=== PATIENT | male | born 1980 | race Caucasian/White ===

== ENCOUNTER 2019-08-04 16:24 | Inpatient (IN) | payer BC ==
[~2019-08-04] VITALS: Ht 185.4 cm; Wt 90.7 kg
--- NOTE | 2019-08-04 16:36 | Emergency Room Report ---
History of Present Illness General Chief Complaint: Generalized Weakness Source: Patient, EMS Present Illness HPI Patient is a 38-year-old male who presents after increased generalized weakness. Patient reports having a recent illness which positive for had some E. coli. Reports having increased generalized weakness. He denies any fever. Reports having some headache with associated right-sided eye pressure. He reports having some increased neck discomfort.He had recent been treated with azithromycin for E. coli diarrheal infection by his doctor. Patient reportedly had multiple syncopal episodes at his ENTs office. Patient apparently passed out 3 times.He denies any nasal congestion or cough. He denies any shortness of breath.Patient reports having some watery diarrheal episode this morning. He reports primarily pain to the right side of his head as well as some slight neck discomfort. He had previous steroid injections in his neck in the past. He does not take any medications regularly but did take ibuprofen this morning. Patient does report having one episode of nonbloody stool this morning. His primary care physician he had previously been healthy but not had not had any prior significant cardiac work-up. Allergies: Coded Allergies: No Known Allergies (Unverified , 08/04/19) Patient History Past Medical History: see triage record Reviewed Nursing Documentation: PMH: Agreed; PSxH: Agreed Review of Systems Musculoskeletal: Reports: muscle stiffness - neck Neurological: Reports: headache, syncope - near syncope All Other Systems: negative except mentioned in HPI Physical Exam Vital Signs Date Time Temp Pulse Resp B/P (MAP) Pulse Ox O2 Delivery O2 Flow Rate FiO2 08/04/19 16:19 98.1 82 16 141/83 (102) 97 Room Air Sp02 EP Interpretation: reviewed, normal General Appearance: normal inspection, well appearing, no apparent distress, alert, GCS 15, non-toxic Head: atraumatic ENT: normal ENT inspection, hearing grossly normal, normal voice Neck: normal inspection, full range of motion, supple, no bony tend Respiratory: normal inspection, lungs clear, normal breath sounds, no respiratory distress, no retraction, no wheezing Cardiovascular #1: regular rate, rhythm, no edema Gastrointestinal: normal inspection, normal bowel sounds, non tender, soft, no guarding, no hernia Genitourinary: no CVA tenderness Musculoskeletal: normal inspection, back normal, normal range of motion Neurologic: normal inspection, alert, oriented x3, responsive, 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 Differential diagnosis include was not limited to dehydration, pulmonary embolism, cardiac arrhythmia, E. coli infection, among others. Because of complexity of patient's case laboratory tests and imaging studies were ordered. EKG interpreted by me showed normal sinus rhythm with a rate of [address] or T wave changes. Patient was noted to have increased generalized weakness and headache. CT imaging of the head read by radiology showed no evidence of acute intracranial hemorrhage or sinus enlargement. Patient was started on IV fluids. He was given Toradol for headache. He was also given some Ativan due to mild anxiety. Patient reports that he has had some recent decrease in amount of caffeine he is taking and this may explain his headaches however he likely require further work-up due to recent near syncopal episodes. He does report having some prior steroid injections in his neck after some neck discomfort in the past but does not recall any recent procedures. He had multiple episodes of recent travel but denies any recent leg pain or swelling consistent with DVT or pulmonary embolism patient was discussed with Dr. Silvia Lux for inpatient management due to covering physician for who I discussed patient's history and laboratory findings. Labs Test 08/04/19 16:40 08/04/19 17:05 White Blood Count 7.2 K/UL (4.8-10.8) Red Blood Count 5.76 M/UL (4.70-6.10) Hemoglobin 17.1 G/DL (14.2-18.0) Hematocrit 50.2 % (42.0-52.0) Mean Corpuscular Volume 87 FL (80-99) Mean Corpuscular Hemoglobin 29.7 PG (27.0-31.0) Mean Corpuscular Hemoglobin Concent 34.1 G/DL (32.0-36.0) Red Cell Distribution Width 10.1 % (11.6-14.8) Platelet Count 239 K/UL (150-450) Mean Platelet Volume 5.6 FL (6.5-10.1) Neutrophils (%) (Auto) 54.6 % (45.0-75.0) Lymphocytes (%) (Auto) 30.1 % (20.0-45.0) Monocytes (%) (Auto) 9.3 % (1.0-10.0) Eosinophils (%) (Auto) 5.1 % (0.0-3.0) Basophils (%) (Auto) 0.9 % (0.0-2.0) Prothrombin Time 11.0 SEC (9.30-11.50) Prothromb Time International Ratio 1.0 (0.9-1.1) Activated Partial Thromboplast Time 29 SEC (23-33) Sodium Level 140 MMOL/L (136-145) Potassium Level 3.9 MMOL/L (3.5-5.1) Chloride Level 105 MMOL/L (98-107) Carbon Dioxide Level 27 MMOL/L (21-32) Anion Gap 8 mmol/L (5-15) Blood Urea Nitrogen 10 mg/dL (7-18) Creatinine 1.1 MG/DL (0.55-1.30) Estimat Glomerular Filtration Rate > 60 mL/min (>60) Glucose Level 116 MG/DL (74-106) Calcium Level 9.3 MG/DL (8.5-10.1) Magnesium Level 1.1 MG/DL (1.8-2.4) Total Bilirubin 0.4 MG/DL (0.2-1.0) Aspartate Amino Transf (AST/SGOT) 16 U/L (15-37) Alanine Aminotransferase (ALT/SGPT) 30 U/L (12-78) Alkaline Phosphatase 56 U/L (46-116) Troponin I 0.000 ng/mL (0.000-0.056) Total Protein 7.8 G/DL (6.4-8.2) Albumin 4.2 G/DL (3.4-5.0) Globulin 3.6 g/dL Albumin/Globulin Ratio 1.2 (1.0-2.7) Thyroid Stimulating Hormone (TSH) 1.027 uiU/mL (0.358-3.740) Urine Color Pale yellow Urine Appearance Clear Urine pH 9 (4.5-8.0) Urine Specific [place] 1.010 (1.005-1.035) Urine Protein Negative (NEGATIVE) Urine Glucose (UA) Negative (NEGATIVE) Urine Ketones Negative (NEGATIVE) Urine Blood Negative (NEGATIVE) Urine Nitrite Negative (NEGATIVE) Urine Bilirubin Negative (NEGATIVE) Urine Urobilinogen Normal MG/DL (0.0-1.0) Urine Leukocyte Esterase Negative (NEGATIVE) Urine RBC 0 /HPF (0 - 0) Urine WBC 0-2 /HPF (0 - 0) Urine Squamous Epithelial Cells None /LPF (NONE/OCC) Urine Bacteria Occasional /HPF (NONE) EKG Diagnostic Results Rate: normal Rhythm: NSR ST Segments: no acute changes Last Vital Signs Date Time Temp Pulse Resp B/P (MAP) Pulse Ox O2 Delivery O2 Flow Rate FiO2 08/04/19 16:19 98.1 82 16 141/83 (102) 97 Room Air Status: improved Disposition: ADMITTED INPATIENT Condition: Stable Scripts Simethicone* (SIMETHICONE*) 80 Mg Tab.chew 80 MG ORAL QID PRN for 30 Days, #30 TAB Prov: Venkata Keller D.O. 08/05/19 Allan Johnston MD Aug 04, 2019 16:36
[2019-08-04 16:39] VITALS: BP 152/94
--- NOTE | 2019-08-04 16:50 | NUR ---
ED Nurse Note: Pt BIBA d/t weakness and diarrhea x2wks. ERMD at bedside. 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 IV on left AC noted, inserted by EMS. Blood sample collected and sent to lab. Denies pain/discomfort at this time. Will continue to monitor.
[2019-08-04] MEDS ORDERED: LR 1000ml 1,000 ML IV SCH (17:00)
[2019-08-04] MEDS ORDERED: Ketorolac 30mg Inj IV ONE (17:00)
[2019-08-04] MEDS ORDERED: NKM (17:07)
--- NOTE | 2019-08-04 17:09 | NUR ---
ED Nurse Note: Pt taken down for CT scan, in stable condition.
[2019-08-04 17:19] LABS: APPEARANCE,URINE CLEAR; BILIRUBIN, URINE NEGATIVE (NEGATIVE); COLOR,URINE PALE YELLOW; GLUCOSE, URINE (UA) NEGATIVE (NEGATIVE); KETONES,URINE NEGATIVE (NEGATIVE); LEUKOCYTE ESTERASE ,URINE NEGATIVE (NEGATIVE); NITRITE,URINE NEGATIVE (NEGATIVE); PH,URINE 9 (4.5-8.0); PROTEIN,URINE NEGATIVE (NEGATIVE); UROBILINOGEN,URINE NORMAL MG/DL (0.0-1.0)
[2019-08-04 17:20] LABS: BASOPHILS % (AUTO) 0.9 % (0.0-2.0); EOSINOPHILS % (AUTO) 5.1 % (0.0-3.0); HEMATOCRIT 50.2 % (42.0-52.0); HEMOGLOBIN 17.1 G/DL (14.2-18.0); LYMPHOCYTES % (AUTO) 30.1 % (20.0-45.0); MEAN CORPUSCULAR VOLUME 87 FL (80-99); MONOCYTES % (AUTO) 9.3 % (1.0-10.0); NEUTROPHILS % (AUTO) 54.6 % (45.0-75.0); PLATELET COUNT 239 K/UL (150-450); RED BLOOD COUNT 5.76 M/UL (4.70-6.10); RED CELL DISTRIBUTION WIDTH 10.1 % (11.6-14.8); WHITE BLOOD COUNT 7.2 K/UL (4.8-10.8)
[2019-08-04 17:27] LABS: ANION GAP 8 mmol/L (5-15); BLOOD UREA NITROGEN 10 mg/dL (7-18); CALCIUM 9.3 MG/DL (8.5-10.1); CARBON DIOXIDE 27 MMOL/L (21-32); CHLORIDE 105 MMOL/L (98-107); CREATININE 1.1 MG/DL (0.55-1.30); POTASSIUM 3.9 MMOL/L (3.5-5.1); SODIUM 140 MMOL/L (136-145)
--- NOTE | 2019-08-04 17:31 | NUR ---
ED Nurse Note: Pt back from CT in stable condition. IV fluids ongoing.
[2019-08-04 17:39] LABS: ALANINE AMINOTRANSFERASE 30 U/L (12-78); ALBUMIN 4.2 G/DL (3.4-5.0); ALBUMIN/GLOBULIN RATIO 1.2 (1.0-2.7); ALKALINE PHOSPHATASE 56 U/L (46-116); ASPARTATE AMINO TRANSFERASE 16 U/L (15-37); BILIRUBIN,TOTAL 0.4 MG/DL (0.2-1.0)
[2019-08-04] MEDS ORDERED: LORazepam 0.5mg tab ORAL ONE (17:45)
--- NOTE | 2019-08-04 17:47 | Diagnostic Imaging Report ---
EXAM: CT Head Without Intravenous Contrast CLINICAL HISTORY: PAIN TECHNIQUE: Axial computed tomography images of the head brain without intravenous contrast. CTDI is 60.0 mGy and DLP is 1280.1 mGy-cm. One or more of the following dose reduction techniques were used: automated exposure control, adjustment of the mA and or kV according to patient size, use of iterative reconstruction technique. COMPARISON: None FINDINGS: Brain: No acute infarct or hemorrhage. No extra-axial fluid collection. No mass effect or midline shift. Ventricles and sulci: Normal. No ventriculomegaly or intraventricular hemorrhage. Skull: Normal. No bony lesion or fracture. Subcutaneous tissues: Normal. Sinuses: Normal. No air-fluid levels or mucosal thickening. Mastoid air cells: Normal. Orbits: Grossly unremarkable. IMPRESSION: No acute intracranial abnormality.
[2019-08-04] MEDS ORDERED: LORazepam Inj 2mg/ml 1ml IV PRN (18:30)
[2019-08-04] MEDS ORDERED: Zolpidem 5mg tab ORAL PRN (18:30)
[2019-08-04] MEDS ORDERED: HYDROcodone/Acetamin 10/325 tab ORAL PRN (18:30)
[2019-08-04] MEDS ORDERED: HYDROcodone/Acetamin 5/325 tab ORAL PRN (18:30)
[2019-08-04 18:50] VITALS: BP 140/78
[2019-08-04 18:51] VITALS: BP_SYST 138; BP_SYST 139; BP_DIAS 72; BP_DIAS 76
--- NOTE | 2019-08-04 18:55 | NUR ---
ED Nurse Note: Orthostatics completed; patient tolerated procedure well.
--- NOTE | 2019-08-04 19:00 | NUR ---
HAND-OFF: Report given to NAHOMI Kirby.
--- NOTE | 2019-08-04 19:02 | NUR ---
ED Nurse Note: Report received from NAHOMI Hwang. pt in bed awake, VSS
--- NOTE | 2019-08-04 19:35 | NUR ---
ED Nurse Note: report given to NAHOMI Carroll
--- NOTE | 2019-08-04 19:40 | NUR ---
ED Nurse Note: pt was brought up to room 207 accompanied by pharmacy technology instructor and RN via gurmo with monitor box in stable condition. pt is alert x4. IV site to left AC is intact. belonging list signed off.
[2019-08-04 20:00] VITALS: BP 137/75
[2019-08-05] VITALS: BP 132/82
[2019-08-05] MEDS ORDERED: Flu Vaccine Pts Less than 65 Years old IM ONE (01:45)
[2019-08-05 04:00] VITALS: BP 115/73
--- NOTE | 2019-08-05 07:58 | NUR ---
NURSE notes: pt awake and alert x4. pt has is not complaining of pain. Pt is on child monitor no signs of cardiac or respiratory distress. Call light within reach. Bed is locked and in lowest position. pt awaiting a 2D echo. will continue to monitor pt and labs.
[2019-08-05 08:00] VITALS: BP 143/85
[2019-08-05] MEDS ORDERED: Simethicone 80mg tab ORAL PRN (10:45)
[2019-08-05 12:00] VITALS: BP 138/74
--- NOTE | 2019-08-05 13:23 | History and Physical ---
History of Present Illness General Date patient seen: Aug 05, 2019 Reason for Hospitalization: Generalized Weakness Present Illness HPI This is a 38 year old male with a PMHx of cervical radiculopathy s/p IV steroid shot one year ago, who presents to the ER on 08/04/19 for near syncope. The patient had been feeling generalized weakness for the past 3 weeks with some intermittent episodes of lightheadedness after eating. No abdominal pain,nausea , vomiting. He has had some change in his stools. They are closer to bristol type 5 and 6, and seem to possible float more. His stool was tested 3 weeks ago and positive for E. Coli and he was treated with 3 days of azithromycin. He continued to experience the same symptoms intermittently so was treated again for 3 days while in [place]. He leads a very active lifestyle and travels a lot. He drinks about 2-3 cups of caffeine per day and alcohol occasionally. Sometimes he skips meals and does not drink much water. His sleep is interrupted from jet lag and a busy schedule occasionally. He has recently stopped smoking cigarettes and stopped drinking caffeine. 2 nights ago, after a busy schedule and concert, his neck felt stiff and had some radiculopathy into his left arm. no trauma. These are chronic symptoms he experiences intermittently. He took a flexeril that night. The next day he woke up with a bilateral retroorpital, pressure, constant 3/10, nonradiating. no fevers, or chills. He took an ibuprofen, magnesium pills and some probiotics. He has a past history of sinus infections and thought he might have one so went to see his ENT physician. While in the office he suddenly felt lightheaded and felt like he was going to pass out. He denies ever losing consciousness. He denies any chest pain, palpitations. He felt anxious during this time and a little short of breath. There was no seizure like activity observed. No incontinence or bowel/bladder incontinence. EMS was called and [place] [facility] [place]: In the ER tmax 98, pulse 55-92, respirations 16-18, BP 115-155/73- 94. He was given 2L normal saline and 75 cc/hr overnight. His orthostatics were negative. EKG showed NSR with rate of 68, normal intervals, no ST-T wave elevations, depressions or inversions. On telemetry he was sinus rhythm, but became sinus bradycardia to high 40s while sleeping. CT head performed was negative. CBC normal, CMP normal. Magnesium low at 1.1. He was admitted to telemetry for further workup. PMhx As above PsurgHx Sinus surgery 2010 Family Hx Dad- CAD Mother- near syncope Social Hx Tobacco- former social smoker Etoh: Socially Drugs: marijuana occasionally Allergies: Coded Allergies: No Known Allergies (Unverified , 08/04/19) Medication History Scheduled No Known Medications* (NKM - No Known Medications*), 0 ., (Reported) Patient History Healthcare decision maker N Resuscitation status Full Code Advanced Directive on File Review of Systems Constitutional: Reports: malaise; Denies: see HPI, chills, sweats, fever, weakness, other Eye: Denies: see HPI, eye pain, blurred vision, tearing, double vision, nose pain, nose congestion, acuity changes, discharge, other ENT: Denies: see HPI, ear pain, ear discharge, nose pain, nose congestion, throat pain, throat swelling, mouth pain, hearing loss, nasal discharge, other Respiratory: Denies: see HPI, cough, orthopnea, shortness of breath, stridor, wheezing, PEÑA, sputum, other Cardiovascular: Denies: see HPI, chest pain, edema, palpitations, syncope, PND , other Gastrointestinal: Denies: see HPI, abdominal pain, constipation, diarrhea, nausea, vomiting, melena, hematemesis, other Genitourinary: Denies: see HPI, discharge, dysuria, frequency, hematuria, pain , retention, incontinence, urgency, vag bleed/dc, other Musculoskeletal: Denies: see HPI, back pain, gout, joint pain, joint swelling, muscle pain, muscle stiffness, other Skin: Denies: see HPI, rash, change in color, change in hair/nails, dryness, lesions, other Psychiatric: Denies: see HPI, prior hx, anxiety, depressed feelings, emotional problems, SI, HI, hallucinations, other Neurological: Denies: see HPI, headache, numbness, paresthesia, seizure, tingling, tremors, focal weakness, syncope, dizziness, other Endocrine: Denies: see HPI, excessive sweating, flushing, intolerance to temperature, increased thirst, increased urine, unexplained weight loss, other Hematologic/Lymphatic: Denies: see HPI, anemia, blood clots, easy bleeding, easy bruising, swollen glands, diathesis, other Physical Exam General Appearance: WD/WN, no apparent distress, alert Lines, tubes and drains: peripheral HEENT: normocephalic, atraumatic Neck: non-tender, normal alignment, supple Respiratory/Chest: chest wall non-tender, lungs clear, normal breath sounds Cardiovascular/Chest: normal peripheral pulses, normal rate, regular rhythm, no JVD Abdomen: normal bowel sounds, non tender, soft, no mass Extremities: normal range of motion, non-tender, normal inspection Skin Exam: normal pigmentation, warm/dry 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 normal, no motor/sensory deficits, alert, oriented x 3, responsive, normal mood/affect Last 24 Hour Vital Signs Date Time Temp Pulse Resp B/P (MAP) Pulse Ox O2 Delivery O2 Flow Rate FiO2 08/05/19 08:00 97.8 66 20 143/85 (104) 97 08/05/19 08:00 58 08/05/19 04:00 55 08/05/19 04:00 97.0 62 18 115/73 (87) 99 08/05/19 00:00 97.7 78 18 132/82 (99) 98 08/05/19 00:00 65 08/04/19 21:42 Room Air 08/04/19 20:00 98.2 65 18 137/75 (95) 99 08/04/19 20:00 57 08/04/19 19:40 98.2 92 18 141/88 99 Room Air 08/04/19 18:51 98.1 78 16 138/72 98 Room Air 08/04/19 18:51 98.1 72 16 139/76 98 Room Air 08/04/19 18:50 98.1 66 16 140/78 98 Room Air 08/04/19 16:39 98.1 66 16 152/94 98 Room Air 08/04/19 16:39 82 16 Room Air 08/04/19 16:19 98.1 82 16 141/83 (102) 97 Room Air Intake and Output 08/04/19 08/05/19 19:00 07:00 Intake Total 1300 ml Output Total 700 ml Balance 600 ml Intake IV Total 1100 ml Other 200 ml Output Urine Total 700 ml # Voids 3 Laboratory Tests Test 08/04/19 16:40 08/04/19 17:05 White Blood Count 7.2 K/UL (4.8-10.8) Red Blood Count 5.76 M/UL (4.70-6.10) Hemoglobin 17.1 G/DL (14.2-18.0) Hematocrit 50.2 % (42.0-52.0) Mean Corpuscular Volume 87 FL (80-99) Mean Corpuscular Hemoglobin 29.7 PG (27.0-31.0) Mean Corpuscular Hemoglobin Concent 34.1 G/DL (32.0-36.0) Red Cell Distribution Width 10.1 % (11.6-14.8) L Platelet Count 239 K/UL (150-450) Mean Platelet Volume 5.6 FL (6.5-10.1) L Neutrophils (%) (Auto) 54.6 % (45.0-75.0) Lymphocytes (%) (Auto) 30.1 % (20.0-45.0) Monocytes (%) (Auto) 9.3 % (1.0-10.0) Eosinophils (%) (Auto) 5.1 % (0.0-3.0) H Basophils (%) (Auto) 0.9 % (0.0-2.0) Prothrombin Time 11.0 SEC (9.30-11.50) Prothromb Time International Ratio 1.0 (0.9-1.1) Activated Partial Thromboplast Time 29 SEC (23-33) Sodium Level 140 MMOL/L (136-145) Potassium Level 3.9 MMOL/L (3.5-5.1) Chloride Level 105 MMOL/L (98-107) Carbon Dioxide Level 27 MMOL/L (21-32) Anion Gap 8 mmol/L (5-15) Blood Urea Nitrogen 10 mg/dL (7-18) Creatinine 1.1 MG/DL (0.55-1.30) Estimat Glomerular Filtration Rate > 60 mL/min (>60) Glucose Level 116 MG/DL (74-106) H Calcium Level 9.3 MG/DL (8.5-10.1) Magnesium Level 1.1 MG/DL (1.8-2.4) L Total Bilirubin 0.4 MG/DL (0.2-1.0) Aspartate Amino Transf (AST/SGOT) 16 U/L (15-37) Alanine Aminotransferase (ALT/SGPT) 30 U/L (12-78) Alkaline Phosphatase 56 U/L (46-116) Troponin I 0.000 ng/mL (0.000-0.056) Total Protein 7.8 G/DL (6.4-8.2) Albumin 4.2 G/DL (3.4-5.0) Globulin 3.6 g/dL Albumin/Globulin Ratio 1.2 (1.0-2.7) Thyroid Stimulating Hormone (TSH) 1.027 uiU/mL (0.358-3.740) Urine Color Pale yellow Urine Appearance Clear Urine pH 9 (4.5-8.0) Urine Specific [place] 1.010 (1.005-1.035) Urine Protein Negative (NEGATIVE) Urine Glucose (UA) Negative (NEGATIVE) Urine Ketones Negative (NEGATIVE) Urine Blood Negative (NEGATIVE) Urine Nitrite Negative (NEGATIVE) Urine Bilirubin Negative (NEGATIVE) Urine Urobilinogen Normal MG/DL (0.0-1.0) Urine Leukocyte Esterase Negative (NEGATIVE) Urine RBC 0 /HPF (0 - 0) Urine WBC 0-2 /HPF (0 - 0) Urine Squamous Epithelial Cells None /LPF (NONE/OCC) Urine Bacteria Occasional /HPF (NONE) Height (Feet): 6 Height (Inches): 1.00 Weight (Pounds): 200 Medications Current Medications Medications (Trade) Dose Ordered Sig/Amanda Route PRN Reason Start Time Stop Time Status Last Admin Dose Admin Acetaminophen (Tylenol) 650 mg Q4H PRN ORAL Mild Pain (Pain Scale 1-3) 08/04/19 18:30 09/03/19 18:29 08/05/19 11:13 Acetaminophen/ Hydrocodone Bitart ([place] 10/325) 1 tab Q6H PRN ORAL Pain Scale (7-10) 08/04/19 18:30 08/11/19 18:29 Acetaminophen/ Hydrocodone Bitart ([place] 5/325) 1 tab Q6H PRN ORAL Moderate Pain (Pain Scale 4-6) 08/04/19 18:30 08/11/19 18:29 Dextrose (Dextrose 50%) 25 ml Q30M PRN IV Hypoglycemia 08/04/19 18:30 09/03/19 18:29 Dextrose (Dextrose 50%) 50 ml Q30M PRN IV Hypoglycemia 08/04/19 18:30 09/03/19 18:29 Diphenhydramine HCl (Benadryl) 25 mg Q6H PRN ORAL Itching/Pruritis 08/04/19 18:30 09/03/19 18:29 Influenza Virus Vaccine Quadrival (Flu Vaccine Pts Less than 65 Years old) 1 ml ONCE ONCE IM 08/05/19 01:45 08/05/19 01:46 UNV Lorazepam (Ativan 2mg/ml 1ml) 0.5 mg Q4H PRN IV For Anxiety 08/04/19 18:30 08/11/19 18:29 08/05/19 05:01 Simethicone (Mylicon) 80 mg QID PRN ORAL flatulence 08/05/19 10:45 09/04/19 10:44 08/05/19 11:18 Sodium Chloride 1,000 ml @ 75 mls/hr [id number] IVLG 08/04/19 19:30 09/03/19 19:29 08/05/19 09:05 Zolpidem Tartrate (Ambien) 5 mg HSPRN PRN ORAL Insomnia 08/04/19 18:30 08/11/19 18:29 Objective Narrative TTE showed EF 65-70% No LVH No abnormal valves Assessment/Plan Problem List: (1) Generalized weakness ICD Codes: R53.1 - Weakness SNOMED: 72326462 (2) Malaise and fatigue ICD Codes: R53.81 - Other malaise; R53.83 - Other fatigue SNOMED: 767484209 (3) Dehydration ICD Codes: E86.0 - Dehydration SNOMED: 14343180 (4) Hypomagnesemia ICD Codes: E83.42 - Hypomagnesemia SNOMED: 720488788 (5) Near syncope ICD Codes: R55 - Syncope and collapse SNOMED: 053301485 Assessment/Plan: This is a 38 year old male with a PMHx of cervical radiculopathy s/p IV steroid shot one year ago, who presents for genearlized weakness, malaise, bloating x 3 weeks, and one episode of near syncope on 08/04/19. #Near syncope #Generalized weakness/malaise #bloating/change in stool boyency #dehydration Do Not suspect syncope or seizure. Patient had a near syncopal event. Suspect this is multifactorial. The patient has been under a lot of stress lately and has not been eating well, drinking, or sleeping well. MOst likely symptoms and near syncope can be explained by dehydration and exhaustion. He does have some gastrointestinal symptoms so may want to rule out other medical etiologies such as celiac disease, GI infection, and H. Pylori > Carotid ultrasound negative > TTE negative > EKG negative. Troponin negative > orthostatics negative - continue med surge with telemetry - Continue IV hydration. s/p 3L NS - Continue NS 75 cc/hr - check H. Pylori - check stool culture - check C. diff - check stool lytes and fecal fat - simethecone PRN - will need ziopatch as outpatient #Hypomagnesemia. Unclear etiology. Could be from urinary or GI source - check Urine lytes (can be done as outpatient) - check stool lytes - replace and recheck #cervical radiculopathy - stable - tylenol as needed - may try to avoid flexeril as could be culprit for symptoms as well. D/w RN, patient, and PCP Dr. Moon. I spent 71 minutes on this encounter. >50% spent on counseling and care coordination. Venkata Keller D.O. Aug 05, 2019 13:23
[2019-08-05 13:40] LABS: EOSINOPHILS % (AUTO) 5.8 % (0.0-3.0); HEMATOCRIT 46.4 % (42.0-52.0); HEMOGLOBIN 15.5 G/DL (14.2-18.0); LYMPHOCYTES % (AUTO) 36.6 % (20.0-45.0); MEAN CORPUSCULAR VOLUME 88 FL (80-99); MONOCYTES % (AUTO) 9.2 % (1.0-10.0); NEUTROPHILS % (AUTO) 47.4 % (45.0-75.0); PLATELET COUNT 244 K/UL (150-450); RED CELL DISTRIBUTION WIDTH 10.8 % (11.6-14.8); WHITE BLOOD COUNT 4.9 K/UL (4.8-10.8)
[2019-08-05 13:41] LABS: BASOPHILS % (AUTO) 1.1 % (0.0-2.0)
--- NOTE | 2019-08-05 14:00 | NUR ---
NURSE NOTES: ordered cbc cmp repeat labs before DC
[2019-08-05 14:05] LABS: ALANINE AMINOTRANSFERASE 27 U/L (12-78); ALBUMIN 3.5 G/DL (3.4-5.0); ALBUMIN/GLOBULIN RATIO 1.1 (1.0-2.7); ALKALINE PHOSPHATASE 47 U/L (46-116); ANION GAP 8 mmol/L (5-15); ASPARTATE AMINO TRANSFERASE 15 U/L (15-37); BILIRUBIN,TOTAL 0.4 MG/DL (0.2-1.0); BLOOD UREA NITROGEN 4 mg/dL (7-18); CALCIUM 8.3 MG/DL (8.5-10.1); CARBON DIOXIDE 27 MMOL/L (21-32); CHLORIDE 116 MMOL/L (98-107); CREATININE 0.8 MG/DL (0.55-1.30); POTASSIUM 4.2 MMOL/L (3.5-5.1); SODIUM 151 MMOL/L (136-145)
--- NOTE | 2019-08-05 14:17 | NUR ---
CASE MANAGEMENT: INITIAL REVIEW 38 YO M ANAY FROM ENT CLINIC CC: WEAKNESS AND DIARRHEA X 3 WEEKS. PMHx: DENIES SI:RECURRENT SYNCOPE. DEHYDRATION. T 98.1 HR 82 RR 16 B/P 141/83 SATS 97% ON RA GLU 116 IS: NS BOLUS X1 TORADOL IV X1 LR IV X1 PATIENT ADMITTED TO TELE 08/04/2019 @ 1713 DCP: PATIENT TO BE DISCHARGED TO HOME ONCE MEDICALLY CLEARED. PLAN OF CARE: CAROTID DUPLEX 2D ECHO ORTHO BPs 08/05/2019 SI:RECURRENT SYNCOPE. DEHYDRATION. T 97 HR 62 RR 18 B/P 115/73 SATS 98% ON RA LABS: NA 151 CL 116 BUN 4 CA 8.3 IS: IVF @ 75 mL/HR TELE STATUS DCP: PATIENT TO BE DISCHARGED TO HOME ONCE MEDICALLY CLEARED. PLAN OF CARE: CAROTID DUPLEX 2D ECHO ORTHO BPs Addendum: 08/05/19 at 1916 by Radha Stevens INTERQUAL MET
--- NOTE | 2019-08-05 14:41 | NUR ---
NURSE NOTES: drawn new bmp sodium and chloride are high. hold NS maintenance fluids due to results
[2019-08-05 16:00] VITALS: BP 129/79
[2019-08-05 16:05] LABS: ANION GAP 6 mmol/L (5-15); BLOOD UREA NITROGEN 4 mg/dL (7-18); CALCIUM 8.9 MG/DL (8.5-10.1); CARBON DIOXIDE 29 MMOL/L (21-32); CHLORIDE 109 MMOL/L (98-107); CREATININE 0.8 MG/DL (0.55-1.30); POTASSIUM 3.9 MMOL/L (3.5-5.1); SODIUM 144 MMOL/L (136-145)
--- NOTE | 2019-08-05 16:23 | NUR ---
NURSE NOTES: labs BMP results are back pt ok to be DC. checked with laboratory asst they acknowledge to have received stool sample. They will start testing it now. for some reason stool culture looked as if was cancelled so lab was unable to process order until now. Doctor is aware of delay.
[2019-08-05] MEDS ORDERED: SIMETHICONE80 MG ORAL (16:41)
--- NOTE | 2019-08-05 16:47 | Discharge Instructions ---
Discharge Instructions Discharge Instructions Follow up with: Dr. Moon on Wednesday Call MD/Return to Hospital if: Symptoms worsen or fail to improve Diet: regular - avoid foods that may cause excess gas such as beans, lentils, other vegetables Resume Normal Activity?: Yes Activity: resume normal activities Follow Up Orders Follow up with Dr. Moon on Wednesday By then, should have results of stool culture, c. diff, other stool tests, H. Pylori tests Use simethecone four times per day as needed for excess gas/bloating. Avoid foods that can cause excess gas such as beans, lentils, other vegetables Drink plenty of water. Stay hydrated. Try to get between 7-8 hours of sleep per night. Attempt stress management techniques such as deep breathing, meditation, excercise. For Congestive Heart Failure Reminder . Venkata Keller D.O. Aug 05, 2019 16:47
--- NOTE | 2019-08-05 17:20 | NUR ---
NURSE NOTES: pt DC by doctor Robins. Pt in stable condition left via private vehicle with a friend Fernando. Pt surveillance system monitor was taken off pt. Pt does not have any sign of cardiac or respiratory distress at this time. Discharge paperwork and medication were reviewed with pt and friend at bedside, both patient and friend verbalized understanding of instructions. Pt was told to follow up with petrographer and primary physician. Pt already has appt with petrographer on Wednesday. IV was discontinued and Iv site does not show signs of bleeding. ID band was removed. Belonging sheet was reviewed with pt. and signed off by pt. Pt took home all personal belongings, and double checked room before departing the hospital.
--- NOTE | 2019-08-06 12:33 | Discharge Summary ---
Discharge Summary Hospital Course Date of Admission Aug 04, 2019 at 17:13 Date of Discharge Aug 05, 2019 at 17:20 Admitting Diagnosis Near Syncope, dehydration HPI Lino Fung is a 38 year old male who was admitted on Aug 04, 2019 at 17:13 for Near Syncope,Dehydration Hospital Course This is a 38 year old male with a PMHx of cervical radiculopathy s/p IV steroid shot one year ago, who presented for genearlized weakness, malaise, bloating x 3 weeks, and one episode of near syncope on 08/04/19. he patient had been feeling generalized weakness for the past 3 weeks with some intermittent episodes of lightheadedness after eating. No abdominal pain,nausea, vomiting. He has had some change in his stools. They are closer to bristol type 5 and 6, and seem to possible float more. His stool was tested 3 weeks ago and positive for E. Coli and he was treated with 3 days of azithromycin. He continued to experience the same symptoms intermittently so was treated again for 3 days while in [place]. He leads a very active lifestyle and travels a lot. He drinks about 2-3 cups of caffeine per day and alcohol occasionally. Sometimes he skips meals and does not drink much water. His sleep is interrupted from jet lag and a busy schedule occasionally. He has recently stopped smoking cigarettes and stopped drinking caffeine. 2 nights ago, after a busy schedule and concert, his neck felt stiff and had some radiculopathy into his left arm. no trauma. These are chronic symptoms he experiences intermittently. He took a flexeril that night. The next day he woke up with a bilateral retroorpital, pressure, constant 3/10, nonradiating. no fevers, or chills. He took an ibuprofen, magnesium pills and some probiotics. He has a past history of sinus infections and thought he might have one so went to see his ENT physician. While in the office he suddenly felt lightheaded and felt like he was going to pass out. He denies ever losing consciousness. He denies any chest pain, palpitations. He felt anxious during this time and a little short of breath. There was no seizure like activity observed. No incontinence or bowel/bladder incontinence. EMS was called and he was taken to [facility] [place]. Upon arrival to [facility] his orthostatics were negative. EKG showed NSR with rate of 68, normal intervals, no ST-T wave elevations, depressions or inversions. On telemetry he was sinus rhythm, but became sinus bradycardia to high 40[address] while [address]. CT head performed was negative. CBC normal, CMP normal. Magnesium low at 1.1. Carotid ultrasound and echocardiogram were both normal. Patient given a total of 4L NS, 4gm magnesium sulfate and his energy improved, however he continued to have a mild tension type headache. Magnesium repleted back to 2.3. Repeat labs continued to be unremarkable. Patient did not have any further near syncopal or syncopal events while hospitalized. No further events on telemetry. Stool studies were sent for stool culture, C diff (negative), fecal fat, stool lytes/osmolality, and serum H. Pylori studies. The patient felt better and was hemodynamically stable upon discharge. He will follow up with his PCP Dr. Moon on Wednesday. #Near syncope #Generalized weakness/malaise #bloating/change in stool boyency #dehydration Do Not suspect syncope or seizure. Patient had a near syncopal event. Suspect this is multifactorial. The patient has been under a lot of stress lately and has not been eating well, drinking, or sleeping well. MOst likely symptoms and near syncope can be explained by dehydration and exhaustion. He does have some gastrointestinal symptoms so may want to rule out other medical etiologies such as celiac disease, GI infection, and H. Pylori > Carotid ultrasound negative > TTE negative > EKG negative. Troponin negative > orthostatics negative - continue med surge with telemetry - Continue IV hydration. s/p 3L NS - Continue NS 75 cc/hr - check H. Pylori - check stool culture - check C. diff - negative - check stool lytes and fecal fat - simethecone PRN - will need ziopatch as outpatient - counseled patient on hydration, sleep hygeine, and eating regular meals. #Hypomagnesemia. Unclear etiology. Could be from urinary or GI source - resolved - check Urine lytes (can be done as outpatient) - check stool lytes #cervical radiculopathy - stable - tylenol as needed - may try to avoid flexeril as could be culprit for symptoms as well. D/w RN, patient, and PCP Dr. Moon. I spent > 30 minutes on this encounter. >50% spent on counseling and care coordination. Discharge Condition Upon Discharge: improving Discharge Disposition Patient was discharged to home Discharge Diagnoses: (1) Near syncope (2) Generalized weakness (3) Malaise and fatigue (4) Dehydration (5) Abdominal bloating (6) Hypomagnesemia Discharge Instructions Discharge Instructions Follow up with: Dr. Moon on Wednesday Call MD/Return to Hospital if: Symptoms worsen or fail to improve Activity: resume normal activities Venkata Keller D.O. Aug 06, 2019 12:33
--- NOTE | 2019-08-07 10:30 | Diagnostic Imaging Report ---
APPROVED REPORT CPT Code: 93120 Vascular Symptoms Comments: SYNCOPE. CAROTID (BILATERAL) - Imaging reveals no significant plaque within the right and left extracranial carotid arteries. The Doppler spectral flow analysis is within normal limits throughout the extracranial carotid arteries bilaterally. VERTEBRAL- The vertebral arteries are within normal limits.
--- NOTE | 2019-08-08 13:59 | Cardiology Report ---
APPROVED REPORT EXAM: Two-dimensional and M-mode echocardiogram with Doppler and color Doppler. INDICATION Syncope M-Mode DIMENSIONS IVSd1.1 (0.7-1.1cm)Left Atrium (MM)2.8 (1.6-4.0cm) LVDd5.7 (3.5-5.6cm)Aortic Root3.4 (2.0-3.7cm) PWd1.3 (0.7-1.1cm)Aortic Cusp Exc.2.4 (1.5-2.0cm) IVSs1.1 cm LVDs4.0 (2.5-4.0cm) PWs1.5 cm Normal left ventricular chamber size, systolic function and wall motion. Left ventricular ejection fraction estimated to be 65-70 %. No evidence of left ventricular hypertrophy . No evidence of pericardial effusion. All other cardiac chamber sizes are within normal limits. Focal aortic valve sclerosis with adequate cusp excursion. Thickened mitral valve leaflets with normal excursion. Mitral annulus and aortic root calcification. Normal pulmonic valve structure. Normal tricuspid valve structure. IVC at normal size with physiologic collapse. A color flow and spectral Doppler study was performed and revealed: No aortic regurgitation. Trace mitral regurgitation. Mitral inflow indicates normal left ventricular diastolic function. Trace tricuspid regurgitation. Tricuspid systolic velocities suggests peak right ventricular systolic pressure of 18 mmHg.
--- NOTE | 2019-08-08 14:26 | Cardiology Report ---
APPROVED REPORT EKG Measurement Heart [id number] Normal sinus rhythm with sinus arrhythmia Normal ECG
== END 2019-08-05 17:20 | disposition home or self-care (01) | DRG 641 ==
LOC: EDBD 16:24 → EMR 17:11 → EEVIPCON 17:11 → 2E 17:13 → EDBEDREQ 18:51 → 2E 08-05 15:50
DX: E86.0 Dehydration (principal); R55 Syncope and collapse; D75.1 Secondary polycythemia; R53.1 Weakness; R14.0 Abdominal distension (gaseous); E83.42 Hypomagnesemia; M54.12 Radiculopathy, cervical region; Z87.891 Personal history of nicotine dependence; Z23 Encounter for immunization
CPT/HCPCS: 36415; 70450; 80048; 80053; 81001; 82705; 83735; 84100; 84443; 84484; 84999; 85025; 85610; 85730; 86677; 87324; 93005; 93306; 93880; 93882; 96361; 96374; 99285